=== PATIENT | male | born 1975 | race Caucasian/White ===

== ENCOUNTER 2019-08-23 09:44 | Day surgery (SDC) | payer OTHER ==
[~2019-08-23] VITALS: Ht 185.4 cm; Wt 109.0 kg
[2019-08-23] VITALS (8 sets, daily range): BP systolic 108–129; BP diastolic 71–94
[2019-08-23] MEDS ORDERED: LIDOCAINE 1% INJ 20 ML 20 ML VIAL ONE (14:18)
[2019-08-23] MEDS ORDERED: NS IV 1000 ML 1,000 ML IV SCH (14:18)
[2019-08-23] MEDS ORDERED: NS IV 1000 ML 1,000 ML ONE (14:18)
[2019-08-23] MEDS ORDERED: HEParin (CATH LAB) 2,000 ML IV ONE (14:19)
[2019-08-23 14:40] LABS: HEMOGLOBIN 14.6 G/DL (13.3-17.7); MEAN PLATELET VOLUME 10.9 FL (7.4-10.4); WHITE BLOOD COUNT 10.1 10^3/uL (4.3-11.0)
[2019-08-23] MEDS ORDERED: MIDAZOLAM 5 MG/5 ML (VERSED) VIAL ONE (14:53)
[2019-08-23] MEDS ORDERED: fentaNYL INJECTION 100 MCG/2 ML AMP ONE (14:53)
[2019-08-23] MEDS ORDERED: INSU200I4 SQ (14:55)
[2019-08-23] MEDS ORDERED: GABA-488 PO (14:55)
[2019-08-23] MEDS ORDERED: SIMV40TA4 PO (14:55)
[2019-08-23] MEDS ORDERED: INSU100I34 SQ (14:55)
[2019-08-23] MEDS ORDERED: METO-370 PO (14:55)
[2019-08-23] MEDS ORDERED: SERT50TA2 PO (14:55)
[2019-08-23] MEDS ORDERED: ASPI-586 PO (14:55)
[2019-08-23 14:56] LABS: PROTHROMBIN TIME PATIENT 13.8 SEC (12.2-14.7)
[2019-08-23 15:02] LABS: BILIRUBIN,TOTAL 0.3 MG/DL (0.1-1.0); CALCIUM 9.3 MG/DL (8.5-10.1); CREATININE SERUM 1.46 MG/DL (0.60-1.30); TOTAL PROTEIN 7.4 GM/DL (6.4-8.2)
[2019-08-23] MEDS ORDERED: DIPH25TA65 PO (15:14)
[2019-08-23] MEDS ORDERED: CLOP75TA69 PO (15:18)
[2019-08-23] MEDS ORDERED: LISI2.5T PO (15:19)
--- NOTE | 2019-08-23 15:20 | NUR ---
SPOKE WITH PT (HE HAD A MED LIST) WELL CALLING DORA MANTILLA TO COMPLETE THE MED REC. 06-29-2018 GABAPENTIN 300MG: PT SAYS THE PRESCRIPTION WAS WRITTEN 2 (300MG) CAPS HS BUT HE ONLY USES ONE. PT INDICATES THAT HE HAD A BIG STOCK LEFT OVER FROM THE LAST TIME HE PICKED IT UP AND HADNT NEEDED TO GET IT REFILLED. 08-20-2019 LISINOPRIL 2.5MG 08-20-2019 SIMVASTATIN 40MG 08-20-2019 METOPROLOL ER 50MG 08-20-2019 PLAVIX 75MG THE PT'S GETS HIS INSULIN BASAGLAR AND TRESIBA FROM [facility]. THE BASAGLAR DIRECTIONS THAT THE PT HAD WRITTEN OUT WERE: 15-25 UNITS TID, BUT THE PT USES 30 UNITS AT BEDTIME. I CALLED [facility] IN [place] TO GET THE DATES IT WAS LAST PICKED UP. ALL THE NURSES WERE WITH OTHER PTS. I LEFT A MESSAGE AND IF/WHEN I GET UPDATED INFO I WILL CORRECT THE MED REC AND AMEND THIS NOTE. OTC MEDS: DIPHENHYDRAMINE 25M TABS Q 12 H PRN ASPIRIN 81M HS
--- NOTE | 2019-08-23 18:05 | Cardiac Procedure Note-CS/ASA ---
Pre-Procedure Note Pre-Op Procedure Note H&P Reviewed The H&P was reviewed, patient examined and no changes noted. Date H&P Reviewed: Aug 23, 2019 Time H&P Reviewed: 16:55 Conscious Sedation Pre-Proced Time 16:55 ASA Score 3 For ASA 3 and 4: Consider anesthesia and medical clearance. Also, for patients with a history of failed moderate sedation consider anesthesia. Airway Lungs Heart ASA score ASA 1: a normal healthy patient ASA 2: a patient with a mild systemic disease (mid diabetes, controlled hypertension, obesity ASA 3: a patient with a severe systemic disease that limits activity (angina, COPD, prior Myocardial infarction) ASA 4: a patient with an incapacitating disease that is a constant threat to life (CHF, renal failure) ASA 5: a moribund patient not expected to survive 24 hrs. (ruptured aneurysm) ASA 6: a declared brain- patient whose organs are being harvested. For emergent operations, add the letter E after the classification Mallampati Classification Grade 2 Sedation Plan Analgesia, Amnesia, Plan communicated to team members, Discussed options with patient/fam, Discussed risks with patient/fam The patient is an appropriate candidate to undergo the planned procedure, sedation, and anesthesia. The patient immediately re-assessed prior to indication. AUNG FELIX MD FACP FAC CCDS Aug 23, 2019 18:05
[2019-08-23] MEDS ORDERED: diphenhydrAMINE 25 MG TAB (BENADRYL) PO PRN (18:15)
[2019-08-23] MEDS ORDERED: PATIENT MAY USE OWN MEDS, ALL PO SCH (18:15)
--- NOTE | 2019-08-23 18:21 | Cardiology Discharge Summary ---
Diagnosis/Chief Complaint Date of Admission 08/23/19 Date of Discharge 08/23/19 Admission Diagnosis CAD. H/o AR in May 2015. H/o cor stents at [place], last in 2014 (per patient r eport) Ischemic cm. Echo of Sep 2016: LVEF45%, anteroapical akinesis, PASP 35 mmHg Chest discomfort and exertional shortness of breath, suggestive of new-onset angina Chronic smoker (1 to 1 1/2 ppd) Elev BMI of approx 33 Hypertension Hyperlipidemia DMII, insulin-requiring CKD-2 (per pt report). 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 H/o AR in May 2015 leading to multiple coronary interventions at [facility] in a span of a few weeks. Card cath of 08/23/19 shows an occluded, bifurcating stent complex in the LAD and a diagonal with faint antegrade flow in the diagonal; patent stent in a Ramus; considerable disease with in a small caliber RV branch of a dominant RCA; LVEDP 15 mmHg; anteroapical akinesis; LVEF 40% Ischemic cm. Echo of Sep 2016: LVEF45%, anteroapical akinesis, PASP 35 mmHg Chest discomfort and exertional shortness of breath, suggestive of new-onset angina Chronic smoker (1 to 1 1/2 ppd) Elev BMI of approx 33 Hypertension Hyperlipidemia DMII, insulin-requiring CKD-2 (per pt report). 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 Today's cath is summarized in the Final Diagnosis. Given occlusion within a complex, bifurcating stent complex in prox-to-mid LAD and a diagonal on which we have little information, we think any attempts at revascularization would be best undertaken at the hospital where all these procedures were originally done. Accordingly, I spoke with Dr Lizama of the CV Service at [facility] and he has kindly accepted the patient. I have spoken with the patient and his . They agree with this transfer. Discharge Summary Procedures None. Hospital Course Pending Labs Laboratory Tests 08/23/19 14:34: White Blood Count 10.1, Red Blood Count 4.95, Hemoglobin 14.6, Hematocrit 43, Mean Corpuscular Volume 87, Mean Corpuscular Hemoglobin 30, Mean Corpuscular Hemoglobin Concent 34, Red Cell Distribution Width 13.0, Platelet Count 197, Mean Platelet Volume 10.9, Prothrombin Time 13.8, INR Comment 1.0, Activated Par tial Thromboplast Time 29, Sodium Level 141, Potassium Level 4.0, Chloride Level 106, Carbon Dioxide Level 28, Anion Gap 7, Blood Urea Nitrogen 18, Creatinine 1.46, Estimat Glomerular Filtration Rate 53, BUN/Creatinine Ratio 12, Glucose Level 102, Calcium Level 9.3, Corrected Calcium 9.3, Total Bilirubin 0.3, Aspartate Amino Transf (AST/SGOT) 21, Alanine Aminotransferase (ALT/SGPT) 35, Alkaline Phosphatase 45, Total Protein 7.4, Albumin 4.0, Triglycerides Level 360, Cholesterol Level 178, LDL Cholesterol Direct 129, VLDL Cholesterol 72, HDL Cholesterol 32 Discussion & Recommendations Home Medications Reviewed patient Home Medication Reconciliation performed by pharmacy medication reconciliations quality technician and/or nursing. Patients Allergies have been reviewed. Discharge Home Medications: Reviewed and agree with Discharge Medication list on patient's Discharge Instruction sheet AUNG FELIX MD FACP FAC CCDS Aug 23, 2019 18:21
[2019-08-23] MEDS ORDERED: DEXTROSE 50% 50 ML (IMS) SYR ONE (19:10)
[2019-08-23] MEDS: NS IV 1000 ML 1,000 ML IV SCH ×2 (19:14→20:55)
[2019-08-23] MEDS ORDERED: INSULIN DEGLUDEC 75 UNIT SQ SCH (21:00)
[2019-08-23] MEDS ORDERED: ASPIRIN E.C. 81 MG (ECOTRIN) TAB PO SCH (21:00)
[2019-08-23] MEDS ORDERED: GABAPENTIN 300 MG (NEURONTIN) CAP PO SCH (21:00)
[2019-08-23] MEDS ORDERED: meTOproloL SUCCINATE 50 MG (TOPROL XL) TAB PO SCH (21:00)
[2019-08-23] MEDS ORDERED: CLOPIDOGREL 75 MG (PLAVIX) TABLET PO SCH (21:00)
[2019-08-23] MEDS ORDERED: lisINopril 5 MG (PRINIVIL) TABLET PO SCH (21:00)
[2019-08-23] MEDS ORDERED: SIMvastatin 40 MG (ZOCOR) TAB PO SCH (21:00)
[2019-08-23] MEDS ORDERED: NON-FORMULARY MEDICATION 1 EA EA (Lisinopril 2.5 MG) PO SCH (21:00)
[2019-08-23] MEDS ORDERED: NON-FORMULARY MEDICATION 1 EA EA (Aspirin (Aspir 81) 81 MG) PO SCH (21:00)
--- NOTE | 2019-08-23 21:23 | NUR ---
1914--Bedside report received from CRUZ Pollard 2014--Andry called with bed and number for report 2018--Andry called, report given to CRUZ Marcus 2027--Dispatch called to request transport 2111--[facility] here to pickle sorter pt, bedside report given, groin site checked, soft/dry/intact 2122--Pt left via EMS, pt belongings sent with
--- NOTE | 2019-08-24 01:24 | CARDIAC CATHETERIZATION ---
DATE OF SERVICE: 08/23/2019 CARDIAC CATHETERIZATION REPORT The patient is a 44-year-old man who has a history of coronary artery disease and ischemic cardiomyopathy. In 2014, following an acute coronary event in May, he had multiple cardiac catheterizations and coronary interventions at [facility]. Multiple stents were placed. As far as we can tell, the stents were in the left anterior descending, a diagonal artery, and a ramus intermedius artery. He has had several weeks of exertional chest discomfort and shortness of breath. Symptoms have been brought on with minimal exertion, but not at rest. Symptoms are consistent with unstable angina. Cardiac catheterization was carried out after having obtained an informed consent. DESCRIPTION OF PROCEDURE: He was brought to the cardiac catheterization laboratory in a fasting state. Right groin was prepared and draped in the usual sterile fashion. Lidocaine 1% for local anesthesia. Modified Seldinger technique was used to advance a 5-[place] sheath in right femoral angiography. A 5-[place] JR4 catheter for left coronary angiography, 5-[place] JR4 catheter for right coronary angiography, 5-[place] pigtail catheter was used for left heart catheterization and left ventricular angiography. Angiography of the right femoral artery was carried out through the sheath and Mynx was used to achieve hemostasis. Vigorous perioperative hydration was carried out to reduce risk of contrast nephropathy, given that he has baseline renal insufficiency. HEMODYNAMICS: Left ventricular end-diastolic pressure following coronary angiography was 15 mmHg. There is no significant pressure gradient on pullback across the aortic valve. Ascending aortic pressure was 85/56 with a mean of 75 mmHg. LEFT VENTRICULAR ANGIOGRAPHY: Left ventricular angiography was carried out in the right anterior oblique projection only. There is anterolateral and apical hypokinesis to akinesis and left ventricular ejection fraction estimated to be 40%. CORONARY ANGIOGRAPHY: Left main coronary artery does not exhibit significant obstructive disease. Left anterior descending artery is extensively stented in its proximal and mid segments. The diagonal branch originating in the stented segment of the left anterior descending artery is also extensively stented. The whole stent complex is occluded, with minimal distal antegrade flow. A ramus intermedius artery has a patent stent in its mid portion. Left circumflex artery is very small caliber and has mild diffuse disease. Right coronary artery is dominant and has a 30% to 40% in the mid portion of the right coronary angiography. A right ventricular branch that continues antegrade to then serve as the posterior descending artery has approximately 80% stenosis in its proximal small caliber vessel. CONCLUSIONS: 1. Coronary artery disease primarily consisting of occluded stented segments in the proximal left anterior descending and a diagonal, A ramus intermedius artery has a patent stent. Right coronary artery is dominant and has a considerable disease in a small caliber right ventricular branch. 2. Mild elevation of left ventricular end-diastolic pressure. 3. Impairment of global left ventricular systolic function with ejection fraction of 40%. 4. Anterolateral and apical akinesis. DISCUSSION AND RECOMMENDATIONS: The proximal and mid LAD and a diagonal arising from this segment are extensively stented and the distal left anterior descending artery is not seen and the distal diagonal has very faint antegrade flow. These lesions are likely the culprit lesion and causing the patient's unstable angina. Given the complex nature of the stenting, the details of which are not available to us, and because none of these interventions procedures have been performed at this hospital, we feel it would be most appropriate to set him back where all these procedures were done where information of these procedures is available. Accordingly, I called Dr. Lizama of the Cardiovascular Services at [facility] who has kindly accepted the patient in transfer. The patient is currently stable and asymptomatic. I have spoken with him and his . They agree with this transfer. Arrangements are being made at the time of this dictation. Job ID: [id number] DocumentID: [id number] Dictated Date: 08/23/2019 17:58:59 Flight Crew Scheduler Date: 08/24/2019 01:24:08 Dictated By: AUNG FELIX MD, MA, FACP, FACC, MTDD
== END 2019-08-23 21:23 | disposition short-term general hospital (02) ==
LOC: CATH 09:44 → ICU 18:00 → CATH 21:23
PROVIDERS: ATTEND Internal Medicine Cardiovascular Disease
DX: I25.10 Atherosclerotic heart disease of native coronary artery without angina pectoris (principal); I25.5 Ischemic cardiomyopathy; F17.210 Nicotine dependence, cigarettes, uncomplicated; I12.9 Hypertensive chronic kidney disease with stage 1 through stage 4 chronic kidney disease, or unspecified chronic kidney disease; E11.22 Type 2 diabetes mellitus with diabetic chronic kidney disease; N18.2 Chronic kidney disease, stage 2 (mild); Z88.0 Allergy status to penicillin; Z79.899 Other long term (current) drug therapy; E66.9 Obesity, unspecified; Z68.31 Body mass index [BMI] 31.0-31.9, adult; Z82.49 Family history of ischemic heart disease and other diseases of the circulatory system; Z83.3 Family history of diabetes mellitus
CPT/HCPCS: 36415; 80053; 80061; 82962; 85027; 85610; 85730; 87081; 93458

== ENCOUNTER → 2020-01-20 | Outpatient (CLI) | payer OTHER ==
[~2020-01-20] MED LIST: ASPI-586 PO; CLOP75TA69 PO; DIPH25TA65 PO; GABA-488 PO; INSU100I34 SQ; INSU200I4 SQ; LISI2.5T PO; METO50TA7 PO; SERT50TA2 PO; SIMV40TA25 PO
== END ==
LOC: CARD 14:26
PROVIDERS: ATTEND Internal Medicine Cardiovascular Disease
DX: I25.10 Atherosclerotic heart disease of native coronary artery without angina pectoris (principal); I51.89 Other ill-defined heart diseases; E11.9 Type 2 diabetes mellitus without complications; I10 Essential (primary) hypertension; I25.5 Ischemic cardiomyopathy; Z72.0 Tobacco use
CPT/HCPCS: 93306

== ENCOUNTER → 2021-10-16 | Outpatient (CLI) | payer MEDICAID ==
[~2021-10-16] MED LIST changes: -LISI2.5T PO; +LISI2.5T13 PO
== END ==
LOC: CARD 10:33
PROVIDERS: ATTEND Internal Medicine Cardiovascular Disease
DX: R06.09 Other forms of dyspnea (principal)
CPT/HCPCS: 93306

== ENCOUNTER → 2021-12-18 | Outpatient (CLI) | payer MEDICAID ==
[~2021-12-18] MED LIST changes: +REGADENOSON 0.4 MG/5 ML SYR (LEXISCAN) IV ONE
[2021-12-18] MEDS: CATHETER FLUSH 10 ML SYR IV PRN ×2 (07:53→09:01)
[2021-12-18 09:01] VITALS: BP 123/93
--- NOTE | 2021-12-19 11:56 | STRESS TEST ---
DATE OF SERVICE: 12/18/2021 RESTING AND POST REGADENOSON TECHNETIUM-99M TETROFOSMIN SPECT CT IMAGING ORDERING PHYSICIAN: Dr. Muhammad. PRIMARY PHYSICIAN: Mary Mcfarland APRN CLINICAL DIAGNOSIS: Shortness of breath. Baseline images were carried out after injection of 10.77 mCi of technetium-99m Tetrofosmin. This was followed by 0.4 mg Regadenoson and 32.8 mCi of technetium-99m Tetrofosmin for stress imaging. The electrocardiogram showed sinus rhythm and there is evidence of old anteroseptal myocardial infarction on the electrocardiogram. The electrocardiogram did not change significantly with regadenoson infusion. The patient tolerated the procedure well. Review of images at rest and following stress indicates an anteroapical perfusion defect that is large and predominantly fixed. Gated images show anteroapical akinesis. Left ventricular ejection fraction is calculated to be 35%. Left ventricular end-diastolic volume is 103 mL. TID is absent (1.1). CONCLUSIONS: 1. Anteroapical myocardial infarction with minimal anastasiya-infarct ischemia. 2. Anteroapical akinesis. 3. Left ventricular ejection fraction is calculated to be 35%. Job ID: [id number] DocumentID: [id number] Dictated Date: 12/19/2021 09:50:46 Dials Supervisor Date: 12/19/2021 11:55:40 Dictated By: AUNG MUHAMMAD MD, MA, FACP, FACC,
== END ==
LOC: CARD 08:30
PROVIDERS: ATTEND Internal Medicine Cardiovascular Disease
DX: R06.09 Other forms of dyspnea (principal); R06.02 Shortness of breath
CPT/HCPCS: 78452; 93017; A9502

== ENCOUNTER → 2022-02-12 | Outpatient (CLI) | payer MEDICAID ==
[~2022-02-12] MED LIST changes: -REGADENOSON 0.4 MG/5 ML SYR (LEXISCAN) IV ONE
== END ==
LOC: CARD 14:00
PROVIDERS: ATTEND Nurse Practitioner Family
DX: I25.5 Ischemic cardiomyopathy (principal); I51.89 Other ill-defined heart diseases
CPT/HCPCS: 93306

== ENCOUNTER → 2023-02-20 | Outpatient (CLI) | payer MEDICAID ==
[~2023-02-20] MED LIST changes: +CLOP-31 PO; -CLOP75TA69 PO
== END ==
LOC: CARD 10:44
PROVIDERS: ATTEND Nurse Practitioner Family
DX: I51.7 Cardiomegaly (principal); I25.5 Ischemic cardiomyopathy
CPT/HCPCS: 93306

== ENCOUNTER → 2023-04-29 | Outpatient (CLI) | payer MEDICAID | LOC: CARD 07:30 | PROVIDERS: ATTEND Nurse Practitioner Family | DX: I25.10 Atherosclerotic heart disease of native coronary artery without angina pectoris (principal); Z53.9 Procedure and treatment not carried out, unspecified reason ==

== ENCOUNTER → 2023-05-28 | Outpatient (CLI) | payer MEDICAID ==
[~2023-05-28] MED LIST changes: +CATHETER FLUSH 10 ML SYR IVP PRN; +REGADENOSON 0.4 MG/5 ML SYR (LEXISCAN) IV ONE
[2023-05-28 08:57] VITALS: BP 126/85
--- NOTE | 2023-05-28 21:22 | STRESS TEST ---
DATE OF SERVICE: 05/28/2023 RESTING AND POST REGADENOSON TECHNETIUM-99M TETROFOSMIN SPECT CT IMAGING ORDERING PHYSICIAN: Vanessa Dominguez APRN. OTHER PHYSICIAN: Dr. Felix. CLINICAL DIAGNOSIS: Coronary artery disease. Baseline images were carried out after injection of 10.89 mCi of technetium-99m tetrofosmin. This was followed by 0.4 mg regadenoson and 32.7 mCi of technetium-99m tetrofosmin for stress imaging. The electrocardiogram showed sinus rhythm and evidence of old anteroseptal myocardial infarction. The electrocardiogram did not change significantly with regadenoson infusion. Review of images at rest and following stress indicates anteroapical perfusion defect that is predominantly fixed. Gated images show anteroapical akinesis. Left ventricular ejection fraction is calculated to be 48%. Left ventricular end-diastolic volume is 122 mL CONCLUSIONS: 1. Anteroapical infarction without significant ischemia. 2. Anteroapical akinesis. 3. Impairment of global left systolic function with a calculated ejection fraction of 48%. 4. Mild to moderate cardiomegaly. Job ID: [id number] DocumentID: [id number] Dictated Date: 05/28/2023 17:57:56 Fruit Canner Date: 05/28/2023 21:21:00 Dictated By: AUNG FELIX MD; BERNADETTE; FACP; FACC;
== END ==
LOC: CARD 06:46
PROVIDERS: ATTEND Nurse Practitioner Family
DX: I25.10 Atherosclerotic heart disease of native coronary artery without angina pectoris (principal)
CPT/HCPCS: 78452; 93017; A9502